=== PATIENT | female | born 1975 | race Caucasian/White ===

== ENCOUNTER → 2020-08-07 08:43 | Outpatient (CLI) | payer OTHER, SELFPAY ==
--- NOTE | ~2020-08-07 | CT_ITS ---
EXAMINATION: CT abdomen pelvis wo con DATE: 08/07/2020 09:07 INDICATION: Hematuria. Left flank pain. History of kidney stones. TECHNIQUE: Computed tomography (CT) of the abdomen and pelvis was performed without intravenous contr ast. The dose-length product was 784.48 mGy-cm. Automated exposure control and iterative reconstructi on technique were employed. COMPARISON: None. FINDINGS: Lung bases are unremarkable. No significant pleural or pericardial effusion. Heart size nor mal. No significant vascular abnormality. No lymphadenopathy. There is an IUD in expected position in the uterus. The liver, spleen, pancreas, adrenal glands and kidneys are unremarkable. No renal stones or hydronep hrosis. No abnormal pelvic masses or fluid collections. Small fat-containing umbilical hernia. No acu te osseous abnormality. IMPRESSION: 1. No acute abdominal abnormality. Reviewed, dictated and finalized at location A.
== END ==
PROVIDERS: PCP Internal Medicine; Visit Provider Internal Medicine
DX: R31.9 Hematuria, unspecified (principal)
CPT/HCPCS: 74176

== ENCOUNTER 2021-07-19 11:56 | Outpatient (RCR) | payer OTHER, SELFPAY ==
[2021-07-19] MEDS: FAMOTIDINE 20 MG TABLET PO (12:12)
[2021-07-19] MEDS: ACETAMINOPHEN 325 MG TABLET 650 MG PO (12:12)
[2021-07-19] MEDS: diphenhydrAMINE HCl CAP 25 MG CAPSULE PO (12:12)
[2021-07-19 12:26] VITALS: BP 109/61; PULSE 75; RESP 16; TEMP 36.6; O2SAT 99
--- NOTE | 2021-07-19 12:30 | PC.NURSE ---
Covid Vaccine was 01/25/21 and 02/15/21 both Pfizer vaccines.
[2021-07-19 13:53] VITALS: BP 98/60; PULSE 64; RESP 18; TEMP 36.1; O2SAT 100
== END 2021-07-19 16:00 | disposition home or self-care (01) ==
LOC: AMCINF 11:56
PROVIDERS: PCP Internal Medicine; Referring Provider Internal Medicine; Visit Provider Internal Medicine Hematology & Oncology
DX: Z23 Encounter for immunization (principal); U07.1 COVID-19
CPT/HCPCS: A9270; J7050; M0243

== ENCOUNTER 2021-12-09 00:22 | Day surgery (SDC) | payer OTHER, SELFPAY ==
[2021-12-02 14:02] VITALS: BMI 35.5
[2021-12-09 09:52] VITALS: BP 125/74; PULSE 95; RESP 18; TEMP 37.1; O2SAT 100
--- NOTE | 2021-12-09 09:58 | WPDANESEPPF ---
Anes - Initial Pre Proc Eval Procedure: Operation Date: 12/09/21 10:30 Proposed Procedures p Screening Colonoscopy - Jack Knowles MD Date/Time: 12/09/21 09:58 Surgeon: aJck Knowles MD Pre Op Diagnosis: family hx of colon ca Patient Data Age: 46 Gender: F Height: 1.6 m Weight: 91 kg Last Vital Signs Temp 37.1 C 12/09/21 09:52 Pulse 95 12/09/21 09:52 Resp 18 12/09/21 09:52 BP 125/74 12/09/21 09:52 Pulse Ox 100 12/09/21 09:52 Allergies Allergy/AdvReac Type Severity Reaction Status Date / Time No Known Allergies Allergy Verified 12/09/21 09:49 Home Medications Medication Instructions Recorded Confirmed Type rizatriptan 10 mg tablet See Rx Instructions .ROUTE 02/28/21 12/02/21 Rx .COMPLEX #12 tablet simvastatin 20 mg tablet 20 mg PO DAILY #90 tablet 06/17/21 12/02/21 Rx levothyroxine 125 mcg tablet 125 mcg PO DAILY #90 tablet 12/03/21 12/09/21 Rx Patient hx anesthesia problems: none Family hx anesthesia problems: none Results Review: All pre-operative results and documents have been reviewed as part of the pre-operative evaluation. [facility] Past Medical History Medical History (Updated 12/09/21 @ 09:59 by Timmy Benton MD) FH: colon cancer in first degree relative <60 years old Hyperlipidemia LDL goal <130 Hypothyroidism (acquired) Migraine without aura and without status migrainosus, not intractable Obesity (BMI 35.0-39.9 without comorbidity) Screening for thyroid disorder Social History Social History Smoking status: Never smoker Second hand tobacco smoke exposure: No Alcohol intake: never Substance use: never Substance use type: does not use Living arrangements: with family Spiritual care concerns: No Anes - Eval Final PreProcedure Day of Procedure 12/09/21 09:58 Patient weight: obese Heart: regular rate and rhythm Lungs: clear to auscultation and normal air movement Airway: Mallampati scale class II Neurological: alert and oriented Last oral intake: >/= 8 hours ASA classification: II Emergent: no Anesthetic plan: proceed Anesthesia type and monitoring: general GIVS Results Review: All pre-operative results and documents have been reviewed as part of the pre-operative evaluation. Informed Consent: The patient's anesthetic plan and its attendant risks and benefits were discussed with the patient/family/POA. Questions were solicited and answers provided to the satisfaction of the patient/family/POA.
[2021-12-09] MEDS: LACTATED RINGERS 1,000 ML 150 ML IV CONT (10:01)
--- NOTE | 2021-12-09 10:31 | WPDGICN ---
Assessment and Plan Assessment and plan (1) FH: colon cancer in first degree relative <60 years old: Code(s): Z80.0 - Family history of malignant neoplasm of digestive organs Status: Acute Assessment and Plan: Patient has a family history of colon cancer in her mother who was age 57 as well as grandmother and great grandmother. Plan is for surveillance colonoscopy now and at 5 year intervals in the future. GI Consult Note Consult date/time: 12/09/21 10:31 HPI: Sisi Comer is a 46 year old female Presents for screening colonoscopy. Patient's family history is significant mother, grandmother, and great grandmother all of had colon cancer. Patient's last colonoscopy 5 years a week ago was unremarkable. She presents today for follow-up screening colonoscopy. She reports that her current weight appetite and bowel movements are normal. She denies abdominal pain. She has had no bleeding. Review of Systems Review of Systems: All systems reviewed & are unremarkable except as noted in HPI and below PMFSH Past Medical History Medical History (Updated 12/09/21 @ 09:59 by Timmy Benton MD) FH: colon cancer in first degree relative <60 years old Hyperlipidemia LDL goal <130 Hypothyroidism (acquired) Migraine without aura and without status migrainosus, not intractable Obesity (BMI 35.0-39.9 without comorbidity) Screening for thyroid disorder Social History Social History Smoking status: Never smoker Second hand tobacco smoke exposure: No Alcohol intake: never Substance use: never Substance use type: does not use Living arrangements: with family Spiritual care concerns: No Meds Home Medications and Allergies Home Medications Medication Instructions Recorded Confirmed Type rizatriptan 10 mg tablet See Rx Instructions .ROUTE 02/28/21 12/02/21 Rx .COMPLEX #12 tablet simvastatin 20 mg tablet 20 mg PO DAILY #90 tablet 06/17/21 12/02/21 Rx levothyroxine 125 mcg tablet 125 mcg PO DAILY #90 tablet 12/03/21 12/09/21 Rx Allergies Allergy/AdvReac Type Severity Reaction Status Date / Time No Known Allergies Allergy Verified 12/09/21 09:49 Vital Signs Vital Signs - 24 hr 12/09/21 09:52 Temperature 98.7 F Pulse Rate 95 Respiratory Rate 18 Blood Pressure 125/74 Pulse Oximetry 100 Exam Narrative: Fit physical exam reveals patient be alert. Vital signs stable. HEENT exam is unremarkable. Patient is anicteric. Lungs are clear to auscultation and percussion. Heart is without murmur or extra sounds. Abdominal exam bowel sounds are present soft nontender with no hepatosplenomegaly. Digital external rectal exam is normal.
[2021-12-09 11:01] VITALS: BP 104/60; PULSE 84; RESP 20; O2SAT 100
[2021-12-09 11:11] VITALS: BP 108/67; PULSE 68; RESP 18; O2SAT 100
[2021-12-09 11:21] VITALS: BP 110/64; PULSE 70; RESP 18; O2SAT 100
== END 2021-12-09 11:33 | disposition home or self-care (01) ==
PROVIDERS: PCP Internal Medicine; Visit Provider Internal Medicine Gastroenterology
PROC: 0DJD8ZZ Inspection of Lower Intestinal Tract, Via Natural or Artificial Opening Endoscopic (ICD-10-PCS; CPT 45378; principal; 2021-12-09 10:30)
DX: Z12.11 Encounter for screening for malignant neoplasm of colon (principal); K64.8 Other hemorrhoids; K57.30 Diverticulosis of large intestine without perforation or abscess without bleeding; Z80.0 Family history of malignant neoplasm of digestive organs; E78.5 Hyperlipidemia, unspecified; E03.9 Hypothyroidism, unspecified; E66.9 Obesity, unspecified; Z68.34 Body mass index [BMI] 34.0-34.9, adult
CPT/HCPCS: 45378; J2704; J7120

== ENCOUNTER 2021-12-30 12:59 | Outpatient (RCR) | payer OTHER, SELFPAY ==
[2021-12-30] MEDS: FAMOTIDINE 20 MG TABLET PO (13:08)
[2021-12-30] MEDS: diphenhydrAMINE HCl CAP 25 MG CAPSULE PO (13:09)
[2021-12-30] MEDS: ACETAMINOPHEN 325 MG TABLET 650 MG PO (13:09)
[2021-12-30 13:12] VITALS: BP 118/59; PULSE 78; TEMP 36.8; O2SAT 99
[2021-12-30 14:36] VITALS: BP 108/54; PULSE 66; O2SAT 100
== END 2021-12-30 16:10 ==
LOC: AMCINF 12:59
PROVIDERS: PCP Internal Medicine; Referring Provider Internal Medicine; Visit Provider Internal Medicine Hematology & Oncology
DX: U07.1 COVID-19 (principal)
CPT/HCPCS: A9270; M0247; Q0247

== ENCOUNTER → 2023-03-18 08:46 | Outpatient (CLI) | payer OTHER, SELFPAY ==
--- NOTE | ~2023-03-18 | MR_ITS ---
EXAMINATION: MR brain/brain stem wo con DATE: 03/18/2023 09:22 INDICATION: Unspecified visual disturbance. Dizziness. TECHNIQUE: Magnetic resonance imaging (MRI) of the brain and brainstem was performed without intraven ous contrast. COMPARISON: None. FINDINGS: There is no intracranial hemorrhage, acute infarction, or abnormal intracranial mass lesion . The ventricles are normal in size. The paranasal sinuses are clear. The orbits are normal. The mast oid air cells are normal. IMPRESSION: 1. Normal brain. Reviewed, dictated and finalized at location A. IMPRESSION: 1. Normal brain.
== END ==
PROVIDERS: PCP Family Medicine; Visit Provider Family Medicine
DX: H53.9 Unspecified visual disturbance (principal)
CPT/HCPCS: 70551

== ENCOUNTER 2023-10-07 13:39 | Outpatient (CLI) | payer OTHER, SELFPAY ==
--- NOTE | ~2023-10-07 | MM_ITS ---
EXAMINATION: MM screening kathe BI w flor HISTORY: Screening mammogram TECHNIQUE: Craniocaudal and mediolateral oblique 3-D tomosynthesis images were obtained and synthetic 2-D images were generated. CAD analysis was submitted and interpreted. COMPARISON: 10/30/2010 bilateral screening mammogram BREAST PARENCHYMAL COMPOSITION: The breasts are heterogeneously dense, which may obscure small masses . FINDINGS: There is no evidence of suspicious mass, calcification, or architectural distortion to sugg est malignancy in either breast. There has been no suspicious interval change. IMPRESSION: 1. No mammographic evidence of malignancy. 2. Recommend routine screening mammography in one year. BI-RADS Category 1: Negative Reviewed, dictated and finalized at location A. KE COUNSELOR
== END 2023-10-07 13:40 | disposition home or self-care (01) ==
LOC: ANHIMG 13:42
PROVIDERS: PCP Family Medicine; Visit Provider Obstetrics & Gynecology
DX: Z12.31 Encounter for screening mammogram for malignant neoplasm of breast (principal)
CPT/HCPCS: 77063; 77067